=== PATIENT | female | born 1990 | race Two or more races ===

== ENCOUNTER 2019-10-11 09:38 | Emergency (ER) | payer MEDICAID, OTHER ==
[~2019-10-11] VITALS: Ht 154.9 cm; Wt 69.4 kg
[2019-10-11 09:45] VITALS: BP 147/91
[2019-10-11] MEDS ORDERED: IPRATROPIUM BROM 0.5 MG/2.5ML INH SOL NEB ONE (10:00)
[2019-10-11] MEDS ORDERED: ASPirin 81 mg TAB PO ONE (10:00)
[2019-10-11] MEDS ORDERED: ALBUTEROL SULF 2.5 MG/0.5ML(0.5%) NEB SOLN NEB ONE (10:00)
== END 2019-10-11 11:35 | disposition home or self-care (01) ==
LOC: ER 09:38
DX: J40 Bronchitis, not specified as acute or chronic (principal); F12.10 Cannabis abuse, uncomplicated; F41.8 Other specified anxiety disorders
CPT/HCPCS: 71045; 94640; 99283; J7644

== ENCOUNTER 2019-10-22 20:28 | Emergency (ER) | payer MEDICAID ==
[~2019-10-22] VITALS: Ht 154.9 cm; Wt 68.5 kg
[2019-10-22 20:50] VITALS: BP 132/78
[2019-10-22] MEDS ORDERED: ALBUTEROL SULF 2.5 MG/0.5ML(0.5%) NEB SOLN NEB ONE (21:00)
[2019-10-22] MEDS ORDERED: IPRATROPIUM BROM 0.5 MG/2.5ML INH SOL NEB ONE (21:00)
[2019-10-22] MEDS ORDERED: cefTRIAXone SOD 1,000 MG VL IM ONE (22:45)
[2019-10-22] MEDS ORDERED: methylPREDNISolone SOD SUCC 125 MG/2 ML VL IM ONE (22:45)
== END 2019-10-22 23:17 | disposition home or self-care (01) ==
LOC: ER 20:28
DX: J98.01 Acute bronchospasm (principal); J20.9 Acute bronchitis, unspecified; J30.9 Allergic rhinitis, unspecified; J45.909 Unspecified asthma, uncomplicated
CPT/HCPCS: 96372; 99284; J0696; J2930

== ENCOUNTER 2023-12-27 13:56 | Emergency (ER) | payer OTHER, MEDICAID ==
[~2023-12-27] VITALS: Ht 154.9 cm; Wt 72.1 kg
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
[2023-12-27] MEDS: KETOROLAC TROMETH 60MG/2ML VIAL IM ONE (15:01)
[2023-12-27 15:13] VITALS: BP 125/75; PULSE 62; RESP 16; TEMP 98.2; O2SAT 99
[2023-12-27] MEDS: ACETAMINOPHEN 500 MG TAB PO ONE (15:39)
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
[2023-12-27] MEDS ORDERED: METH-1182 PO (15:44)
[2023-12-27] MEDS ORDERED: IBUP-1454 PO (15:44)
== END 2023-12-27 15:49 | disposition home or self-care (01) ==
LOC: ER 13:56
DX: S16.1XXA Strain of muscle, fascia and tendon at neck level, initial encounter (principal); S39.012A Strain of muscle, fascia and tendon of lower back, initial encounter; J45.909 Unspecified asthma, uncomplicated; F41.9 Anxiety disorder, unspecified; F15.90 Other stimulant use, unspecified, uncomplicated; Z79.1 Long term (current) use of non-steroidal anti-inflammatories (NSAID); Z79.899 Other long term (current) drug therapy; V43.52XA Car driver injured in collision with other type car in traffic accident, initial encounter; Y93.I9 Activity, other involving external motion; Y92.89 Other specified places as the place of occurrence of the external cause; Y99.8 Other external cause status
CPT/HCPCS: 72040; 72100; 96372; 99284; J1885